=== PATIENT | male | born 1965 | race African-American/Black ===

== ENCOUNTER 2017-02-17 16:40 | Emergency (ER) | payer MEDICAID ==
[~2017-02-17] VITALS: Ht 185.4 cm; Wt 105.0 kg
[~2017-02-17 16:40] MED LIST: ATOR10TA PO; GABA800T97 PO; METO-296 PO; TAMS0.4C31 PO; ZOLP10TA2 PO
[2017-02-17] MEDS ORDERED: ASPIRIN 81MG TABLET PO ONE (17:45)
[2017-02-17] MEDS: NITROGLYCERIN 0.4MG TABLET SL SL PRN ×2 (18:15→18:20)
[2017-02-17 18:36] LABS: BASOPHILS % 1.1 % (0.0-2.0); EOSINOPHILS % 8.7 % (0.0-5.0); HEMATOCRIT. 38.2 % (42.0-52.0); HEMOGLOBIN. 13.1 g/dL (14.0-18.0); LYMPHOCYTES % 40.9 % (20.0-50.0); MEAN CORPUSCULAR HEMOGLOBIN 32.7 pg (28.0-32.0); MEAN CORPUSCULAR VOLUME 95.6 fL (80.0-94.0); MEAN PLATELET VOLUME 10.9 fl (7.4-10.4); NEUTROPHILS % 43.3 % (40.0-76.0); PLATELET 116 x1000/uL (130-400); RED CELL DISTRIBUTION WIDTH 14.1 % (11.6-14.6)
[2017-02-17 18:42] LABS: INR 1.4; PROTHROMBIN TIME 14.8 sec
[2017-02-17 18:52] LABS: CARBON DIOXIDE 27 mEq/L (21-32); CHLORIDE 107 mEq/L (98-107); TROPONIN I < 0.02 ng/mL (0.00-0.04)
[2017-02-17 22:45] VITALS: BP 138/96
== END 2017-02-17 22:47 | disposition home or self-care (01) ==
LOC: ER 19:13
DX: R07.9 Chest pain, unspecified (principal); I48.91 Unspecified atrial fibrillation; Z88.0 Allergy status to penicillin; Z79.899 Other long term (current) drug therapy; I10 Essential (primary) hypertension; J45.909 Unspecified asthma, uncomplicated
CPT/HCPCS: 36415; 71010; 80053; 83880; 84484; 85025; 85610; 93005; 99285; Z7610

== ENCOUNTER 2017-06-17 19:52 | Inpatient (IN) | payer MEDICAID ==
[~2017-06-17] VITALS: Ht 185.4 cm; Wt 93.0 kg
[~2017-06-17 19:52] MED LIST changes: -METO-296 PO; +METO-396 PO
[2017-06-17] MEDS ORDERED: ASPIRIN 81MG TABLET PO STA (20:58)
[2017-06-17] MEDS: NITROGLYCERIN 0.4MG TABLET SL SL PRN ×3 (21:12→22:12)
[2017-06-17 21:51] LABS: HEMATOCRIT. 39.1 % (42.0-52.0); MEAN CORPUSCULAR HEMOGLOBIN 31.5 pg (28.0-32.0); MEAN CORPUSCULAR VOLUME 94.8 fL (80.0-94.0); PLATELET 94 x1000/uL (130-400); RED BLOOD CELL COUNT 4.12 mill/uL (4.7-6.1); RED CELL DISTRIBUTION WIDTH 13.9 % (11.6-14.6)
[2017-06-17 21:56] LABS: CHLORIDE 108 mEq/L (98-107)
[2017-06-17 22:00] LABS: CARBON DIOXIDE 31 mEq/L (21-32); INR 1.5; PARTIAL THROMBOPLASTIN TIME 33.5 sec (23.4-31.0); PROTHROMBIN TIME 15.4 sec (9.4-11.6)
[2017-06-17 22:04] LABS: TROPONIN I < 0.02 ng/mL (0.00-0.04)
[2017-06-17 22:17] LABS: PLATELET ESTIMATE DECREASED
[2017-06-17] MEDS ORDERED: MORPHINE SULFATE 4 MG/ML CPJ (NOT FOR IM USE) IV STA (22:24)
[2017-06-17] MEDS ORDERED: ONDANSETRON HCL 4MG/2ML VIAL IV STA (22:24)
[2017-06-18 01:10] VITALS: BP 131/96
[2017-06-18] MEDS ORDERED: RIVA20TA PO (01:43)
[2017-06-18] MEDS ORDERED: ALBU18HF2 IH (01:46)
[2017-06-18 04:00] VITALS: BP 128/98
[2017-06-18] MEDS: HYDROCODONE/ACETAMINOPHEN 5/325MG TABLET PO PRN ×2 (06:48→14:56)
[2017-06-18 07:18] VITALS: BP 135/105
[2017-06-18] MEDS: IPRATROPIUM/ALBUTEROL 0.5-3(2.5)MG/3ML NEB HHN SCH ×4 (08:07→20:30)
[2017-06-18] MEDS ORDERED: RIVAROXABAN 20 MG TABLET PO SCH ×2 (09:00)
[2017-06-18] MEDS ORDERED: METOPROLOL TARTRATE 25MG TABLET PO SCH (09:00)
[2017-06-18] MEDS ORDERED: MEDICATION NOT ON FORMULARY EA (Metoprolol Succinate 25 MG) PO SCH (09:00)
[2017-06-18] MEDS ORDERED: MEDICATION NOT ON FORMULARY EA (Gabapentin 800 MG) PO SCH (09:00)
[2017-06-18 09:06] LABS: BASOPHILS % 0.4 % (0.0-2.0); EOSINOPHILS % 4.4 % (0.0-5.0); HEMATOCRIT. 38.7 % (42.0-52.0); HEMOGLOBIN. 12.9 g/dL (14.0-18.0); LYMPHOCYTES % 35.2 % (20.0-50.0); MEAN CORPUSCULAR HEMOGLOBIN 31.6 pg (28.0-32.0); MEAN CORPUSCULAR VOLUME 94.6 fL (80.0-94.0); MEAN PLATELET VOLUME 13.1 fl (7.4-10.4); MONOCYTES % 6.4 % (2.0-8.0); NEUTROPHILS % 53.6 % (40.0-76.0); PLATELET 91 x1000/uL (130-400); RED BLOOD CELL COUNT 4.09 mill/uL (4.7-6.1)
[2017-06-18] MEDS: GABAPENTIN 400MG CAPSULE PO SCH ×4 (09:29→21:49)
[2017-06-18 09:34] LABS: CARBON DIOXIDE 32 mEq/L (21-32); CHLORIDE 105 mEq/L (98-107); CREATINE KINASE 318 IU/L (39-308); CREATINE KINASE MB FRACTION 2.8 ng/mL (0.5-3.6); TROPONIN I < 0.02 ng/mL (0.00-0.04)
[2017-06-18] MEDS ORDERED: DILTIAZEM HCL 5MG/ML 5ML VIAL IV PRN (11:45)
[2017-06-18 12:00] VITALS: BP 140/115
[2017-06-18] MEDS: ISOSORB DINIT/HYDRALAZINE HCL 20/37.5MG TABLET PO SCH ×2 (14:56→21:52)
[2017-06-18 15:59] VITALS: BP 112/80
[2017-06-18 16:13] LABS: CREATINE KINASE 286 IU/L (39-308); CREATINE KINASE MB FRACTION 2.4 ng/mL (0.5-3.6); TROPONIN I < 0.02 ng/mL (0.00-0.04)
[2017-06-18 20:00] VITALS: BP_SYST 107; BP_SYST 89; BP_DIAS 63; BP_DIAS 72
[2017-06-18] MEDS ORDERED: MEDICATION NOT ON FORMULARY EA (Zolpidem Tartrate (Ambien) 10 MG) PO SCH (21:00)
[2017-06-18] MEDS: ZOLPIDEM TARTRATE 5MG TABLET PO SCH (21:00)
[2017-06-18] MEDS ORDERED: TAMSULOSIN HCL 0.4MG SR CAPSULE PO SCH (21:00)
[2017-06-18] MEDS: ATORVASTATIN CALCIUM 10MG TABLET PO SCH (21:50)
[2017-06-18] MEDS: FUROSEMIDE 20MG TABLET PO SCH (21:50)
[2017-06-18] MEDS: METOPROLOL TARTRATE 50MG TABLET PO SCH (21:51)
[2017-06-18 23:58] LABS: CREATINE KINASE 241 IU/L (39-308); CREATINE KINASE MB FRACTION 2.6 ng/mL (0.5-3.6); TROPONIN I < 0.02 ng/mL (0.00-0.04)
[2017-06-19] VITALS: BP 98/68
[2017-06-19] MEDS: IPRATROPIUM/ALBUTEROL 0.5-3(2.5)MG/3ML NEB HHN SCH ×5 (01:16→16:54)
[2017-06-19 04:00] VITALS: BP 109/70
[2017-06-19] MEDS: ISOSORB DINIT/HYDRALAZINE HCL 20/37.5MG TABLET PO SCH ×3 (05:34→22:23)
[2017-06-19 06:12] LABS: CARBON DIOXIDE 31 mEq/L (21-32); CHLORIDE 104 mEq/L (98-107)
[2017-06-19 06:20] LABS: BASOPHILS % 0.6 % (0.0-2.0); EOSINOPHILS % 4.7 % (0.0-5.0); HEMATOCRIT. 36.7 % (42.0-52.0); HEMOGLOBIN. 12.2 g/dL (14.0-18.0); LYMPHOCYTES % 41.2 % (20.0-50.0); MEAN CORPUSCULAR HEMOGLOBIN 31.6 pg (28.0-32.0); MEAN PLATELET VOLUME 12.2 fl (7.4-10.4); MONOCYTES % 7.3 % (2.0-8.0); NEUTROPHILS % 46.2 % (40.0-76.0); PLATELET 90 x1000/uL (130-400); RED BLOOD CELL COUNT 3.86 mill/uL (4.7-6.1); RED CELL DISTRIBUTION WIDTH 13.6 % (11.6-14.6)
[2017-06-19 07:25] VITALS: BP 132/95
[2017-06-19] MEDS ORDERED: TAMSULOSIN HCL 0.4MG SR CAPSULE PO SCH ×2 (08:15→21:00)
[2017-06-19] MEDS: GABAPENTIN 400MG CAPSULE PO SCH ×4 (08:53→20:38)
[2017-06-19] MEDS: FINASTERIDE 5MG TABLET PO SCH (08:53)
[2017-06-19] MEDS: FUROSEMIDE 20MG TABLET PO SCH ×2 (08:53→20:38)
[2017-06-19] MEDS: METOPROLOL TARTRATE 50MG TABLET PO SCH ×2 (08:53→20:38)
[2017-06-19 11:35] VITALS: BP 122/92
[2017-06-19 12:06] LABS: CLARITY URINE CLEAR (CLEAR); COLOR URINE YELLOW (YELLOW); GLUCOSE URINE NEGATIVE (NEGATIVE); KETONES URINE NEGATIVE (NEGATIVE); LEUKOCYTE ESTERASE URINE NEGATIVE (NEGATIVE); NITRITE URINE NEGATIVE (NEGATIVE); OCCULT BLOOD URINE TRACE (NEGATIVE); PH URINE 5.5 (4.5-8.0); PROTEIN URINE NEGATIVE (NEGATIVE); SPECIFIC GRAVITY URINE 1.011 (1.005-1.030); UROBILINOGEN URINE 0.2 E.U./dL (0.2-1.0)
[2017-06-19] MEDS: HYDROCODONE/ACETAMINOPHEN 5/325MG TABLET PO PRN (14:31)
[2017-06-19 15:40] VITALS: BP 118/83
[2017-06-19] MEDS ORDERED: RIVAROXABAN 20 MG TABLET PO SCH (17:00)
[2017-06-19 20:00] VITALS: BP 124/100
[2017-06-19] MEDS: ATORVASTATIN CALCIUM 10MG TABLET PO SCH (20:35)
[2017-06-19] MEDS: ZOLPIDEM TARTRATE 5MG TABLET PO SCH (22:23)
[2017-06-20] VITALS: BP 120/75
[2017-06-20 04:00] VITALS: BP 137/100
[2017-06-20] MEDS: ISOSORB DINIT/HYDRALAZINE HCL 20/37.5MG TABLET PO SCH (05:22)
[2017-06-20] MEDS: HYDROCODONE/ACETAMINOPHEN 5/325MG TABLET PO PRN (06:24)
[2017-06-20 08:09] VITALS: BP 126/90
[2017-06-20] MEDS: FUROSEMIDE 20MG TABLET PO SCH (08:58)
[2017-06-20] MEDS: GABAPENTIN 400MG CAPSULE PO SCH (08:59)
[2017-06-20] MEDS: METOPROLOL TARTRATE 50MG TABLET PO SCH (08:59)
[2017-06-20] MEDS: FINASTERIDE 5MG TABLET PO SCH (08:59)
[2017-06-20 09:51] VITALS: BP 126/90
== END 2017-06-20 11:30 | disposition home or self-care (01) | DRG 203 ==
LOC: ER 20:17 → 6WST 23:42 → EDBEDREQ 23:45 → ENRESERV 23:57
PROVIDERS: ADMIT Internal Medicine; ATTEND Internal Medicine
DX: M94.0 Chondrocostal junction syndrome [Tietze] (principal); I42.0 Dilated cardiomyopathy; I10 Essential (primary) hypertension; E78.5 Hyperlipidemia, unspecified; I48.2 Chronic atrial fibrillation; N40.0 Benign prostatic hyperplasia without lower urinary tract symptoms; Z79.01 Long term (current) use of anticoagulants; Z89.511 Acquired absence of right leg below knee; Z88.0 Allergy status to penicillin; Z79.899 Other long term (current) drug therapy; Z82.49 Family history of ischemic heart disease and other diseases of the circulatory system
CPT/HCPCS: 36415; 71010; 80048; 81001; 82550; 82553; 83735; 83880; 84484; 85025; 85610; 85730; 93005; 93306; 93970; 94640; 96374; 96375; 99285; J2270; J2405; J7620

== ENCOUNTER 2021-02-13 13:00 | Inpatient (IN) | payer MEDICAID ==
[~2021-02-13] VITALS: Ht 185.4 cm; Wt 104.3 kg
[~2021-02-13 13:00] MED LIST changes: +ALBU18HF2 IH; +APIX5TAB PO; +CARV6.2548 PO; +DOCU-150 PO; +FINA5TAB11 PO; +FURO40TA5 PO; +LISI10TA26 PO; +NON-FORMULARY INH
[2021-02-13] MEDS ORDERED: MORPHINE SULFATE 2 MG/ML CPJ (NOT FOR IM USE) IV ONE (14:15)
[2021-02-13 14:29] LABS: BASOPHILS % 1.3 % (0.0-2.0); EOSINOPHILS % 6.4 % (0.0-5.0); HEMATOCRIT. 44.2 % (42.0-52.0); HEMOGLOBIN. 14.6 g/dL (14.0-18.0); LYMPHOCYTES % 31.6 % (20.0-50.0); MEAN CORPUSCULAR HEMOGLOBIN 32.9 pg (28.0-32.0); MEAN CORPUSCULAR VOLUME 99.1 fL (80.0-94.0); MONOCYTES % 7.6 % (2.0-8.0); NEUTROPHILS % 53.1 % (40.0-76.0); PLATELET 104 x1000/uL (130-400); RED BLOOD CELL COUNT 4.46 mill/uL (4.7-6.1); RED CELL DISTRIBUTION WIDTH 15.1 % (11.6-14.6)
[2021-02-13 14:30] LABS: CHLORIDE 107 mEq/L (98-107)
[2021-02-13 14:31] LABS: *AMPHETAMINES SCREEN URINE NEGATIVE (NEGATIVE); *BARBITURATES SCREEN URINE NEGATIVE (NEGATIVE)
[2021-02-13 14:32] LABS: *BENZODIAZEPINES SCREEN URINE NEGATIVE (NEGATIVE); *COCAINE SCREEN URINE NEGATIVE (NEGATIVE); CANNABINOID URINE SCREEN NEGATIVE (NEGATIVE); METHADONE URINE SCREEN NEGATIVE (NEGATIVE); OPIATES URINE SCREEN NEGATIVE (NEGATIVE); PHENCYCLIDINE URINE SCREEN NEGATIVE (NEGATIVE)
[2021-02-13 14:34] LABS: ETHANOL BLOOD < 10 mg/dL
[2021-02-13] MEDS ORDERED: IOHEXOL-350 100 ML BOTTLE ONE (16:50)
[2021-02-13] MEDS ORDERED: ASPIRIN 325MG EC TABLET PO NR (18:30)
[2021-02-13] MEDS ORDERED: DIPHENHYDRAMINE 50MG/ML VIAL IV PRN (19:15)
[2021-02-13] MEDS ORDERED: ONDANSETRON HCL 4MG/2ML INJ IV PRN (19:15)
[2021-02-13] MEDS ORDERED: CLONIDINE 0.1MG TABLET PO PRN (19:15)
[2021-02-13] MEDS ORDERED: MAGNESIUM/ALUMINUM HYDROXIDE/SIMETHICONE 30ML UDC PO PRN (19:15)
[2021-02-13] MEDS ORDERED: DOCUSATE SODIUM 100MG CAPSULE PO PRN (19:15)
[2021-02-13] MEDS ORDERED: ACETAMINOPHEN 325MG TABLET PO PRN (19:15)
[2021-02-13] MEDS ORDERED: NA PHOS,M-B/NA PHOS,DI-BA ENEMA 118ML PR PRN (19:15)
[2021-02-13] MEDS ORDERED: HYDROCODONE/ACETAMINOPHEN 5/325MG TABLET PO PRN (19:15)
[2021-02-13] MEDS ORDERED: GUAIFENESIN 200MG/10ML SUGAR FREE UDC PO PRN (19:15)
[2021-02-13 19:44] LABS: CHLORIDE 105 mEq/L (98-107)
[2021-02-13] MEDS: MORPHINE SULFATE 2 MG/ML CPJ (NOT FOR IM USE) IV PRN (20:21)
[2021-02-13] MEDS ORDERED: ENOXAPARIN 40MG/0.4ML SYR SUBCUT SCH (21:00)
[2021-02-13 22:45] VITALS: BP 137/95
[2021-02-14] MEDS: LORAZEPAM 2MG/ML CPJ IV PRN ×2 (01:52→22:34)
[2021-02-14 04:30] VITALS: BP 115/83
[2021-02-14 06:57] LABS: CHLORIDE 106 mEq/L (98-107)
[2021-02-14 07:06] LABS: HDL CHOLESTEROL 34 mg/dL (40-59)
[2021-02-14 07:08] LABS: LDL CHOLESTEROL 120 mg/dL (5-100)
[2021-02-14 07:09] LABS: T4 FREE 0.86 ng/dL (0.76-1.46)
[2021-02-14 07:15] LABS: BASOPHILS % 0.9 % (0.0-2.0); EOSINOPHILS % 6.7 % (0.0-5.0); HEMATOCRIT. 42.9 % (42.0-52.0); HEMOGLOBIN. 13.9 g/dL (14.0-18.0); LYMPHOCYTES % 39.5 % (20.0-50.0); MEAN CORPUSCULAR HEMOGLOBIN 32.5 pg (28.0-32.0); MEAN PLATELET VOLUME 11.3 fl (7.4-10.4); MONOCYTES % 6.9 % (2.0-8.0); PLATELET 98 x1000/uL (130-400); RED BLOOD CELL COUNT 4.29 mill/uL (4.7-6.1); RED CELL DISTRIBUTION WIDTH 14.8 % (11.6-14.6)
[2021-02-14 08:18] VITALS: BP 119/83
[2021-02-14] MEDS: ASPIRIN 81MG EC TABLET PO SCH (08:49)
[2021-02-14] MEDS ORDERED: REGADENOSON 0.4 MG/5 ML IV NR (11:30)
[2021-02-14 11:36] VITALS: BP 117/76
[2021-02-14] MEDS: IPRATROPIUM/ALBUTEROL 0.5-3(2.5)MG/3ML NEB NEB PRN (11:45)
[2021-02-14] MEDS: ENOXAPARIN 120MG/0.8ML SYR SUBCUT SCH ×3 (13:16→22:29)
[2021-02-14] MEDS: FUROSEMIDE 40MG/4ML VIAL IVP SCH (13:16)
[2021-02-14] MEDS: DILTIAZEM HCL 30MG TABLET PO SCH ×2 (13:18→17:43)
[2021-02-14] MEDS: MORPHINE SULFATE 2 MG/ML CPJ (NOT FOR IM USE) IV PRN (14:01)
[2021-02-14 16:40] VITALS: BP 119/83
[2021-02-14 20:09] VITALS: BP 115/80
[2021-02-14] MEDS: CARVEDILOL 3.125 MG TABLET PO SCH (21:11)
[2021-02-14] MEDS: ENTRESTO PO SCH (21:11)
[2021-02-15] VITALS (7 sets, daily range): BP systolic 99–121; BP diastolic 67–93
[2021-02-15] MEDS: DILTIAZEM HCL 30MG TABLET PO SCH ×4 (00:41→17:51)
[2021-02-15] MEDS: MORPHINE SULFATE 2 MG/ML CPJ (NOT FOR IM USE) IV PRN ×3 (00:46→23:22)
[2021-02-15 06:45] LABS: BASOPHILS % 1.1 % (0.0-2.0); EOSINOPHILS % 5.6 % (0.0-5.0); HEMATOCRIT. 41.4 % (42.0-52.0); HEMOGLOBIN. 13.8 g/dL (14.0-18.0); LYMPHOCYTES % 40.3 % (20.0-50.0); MEAN CORPUSCULAR HEMOGLOBIN 32.8 pg (28.0-32.0); MEAN CORPUSCULAR VOLUME 98.2 fL (80.0-94.0); MEAN PLATELET VOLUME 12.1 fl (7.4-10.4); MONOCYTES % 6.2 % (2.0-8.0); NEUTROPHILS % 46.8 % (40.0-76.0); PLATELET 105 x1000/uL (130-400); RED BLOOD CELL COUNT 4.22 mill/uL (4.7-6.1); RED CELL DISTRIBUTION WIDTH 14.7 % (11.6-14.6)
[2021-02-15 07:12] LABS: INR 1.1; PROTHROMBIN TIME 11.9 sec (9.6-11.0)
[2021-02-15] MEDS: FUROSEMIDE 40MG/4ML VIAL IVP SCH (08:36)
[2021-02-15] MEDS: ENTRESTO PO SCH ×2 (08:37→21:01)
[2021-02-15] MEDS: ASPIRIN 81MG EC TABLET PO SCH (08:37)
[2021-02-15] MEDS: CARVEDILOL 3.125 MG TABLET PO SCH ×2 (08:37→20:48)
[2021-02-15] MEDS: ENOXAPARIN 120MG/0.8ML SYR SUBCUT SCH ×2 (08:37→21:01)
[2021-02-15 08:54] LABS: CHLORIDE 104 mEq/L (98-107)
[2021-02-15] MEDS ORDERED: POTASSIUM CHLORIDE 20MEQ TABLET SR PO NR (10:15)
[2021-02-15] MEDS: IPRATROPIUM/ALBUTEROL 0.5-3(2.5)MG/3ML NEB NEB PRN (17:15)
[2021-02-15] MEDS: ZOLPIDEM TARTRATE 5MG TABLET PO PRN (21:06)
[2021-02-16] VITALS (8 sets, daily range): BP systolic 104–137; BP diastolic 67–99
[2021-02-16] MEDS: MORPHINE SULFATE 2 MG/ML CPJ (NOT FOR IM USE) IV PRN ×2 (04:26→22:04)
[2021-02-16] MEDS: DILTIAZEM HCL 30MG TABLET PO SCH ×5 (05:56→23:59)
[2021-02-16 06:12] LABS: CHLORIDE 107 mEq/L (98-107)
[2021-02-16 06:15] LABS: BASOPHILS % 1.1 % (0.0-2.0); EOSINOPHILS % 4.7 % (0.0-5.0); HEMOGLOBIN. 13.8 g/dL (14.0-18.0); LYMPHOCYTES % 40.1 % (20.0-50.0); MEAN CORPUSCULAR HEMOGLOBIN 33.1 pg (28.0-32.0); MEAN CORPUSCULAR VOLUME 98.2 fL (80.0-94.0); MEAN PLATELET VOLUME 11.4 fl (7.4-10.4); NEUTROPHILS % 48.1 % (40.0-76.0); PLATELET 102 x1000/uL (130-400); RED BLOOD CELL COUNT 4.18 mill/uL (4.7-6.1); RED CELL DISTRIBUTION WIDTH 14.8 % (11.6-14.6)
[2021-02-16] MEDS: CARVEDILOL 3.125 MG TABLET PO SCH ×2 (09:00→22:02)
[2021-02-16] MEDS: ENTRESTO PO SCH ×2 (10:07→22:02)
[2021-02-16] MEDS: ASPIRIN 81MG EC TABLET PO SCH (10:07)
[2021-02-16] MEDS: ENOXAPARIN 120MG/0.8ML SYR SUBCUT SCH ×2 (10:07→22:03)
[2021-02-16] MEDS: FUROSEMIDE 40MG/4ML VIAL IVP SCH (10:21)
[2021-02-16] MEDS: IPRATROPIUM/ALBUTEROL 0.5-3(2.5)MG/3ML NEB NEB PRN (11:57)
[2021-02-16] MEDS ORDERED: POTASSIUM CHLORIDE 20MEQ TABLET SR PO NR (13:30)
[2021-02-16] MEDS: ZOLPIDEM TARTRATE 5MG TABLET PO PRN (23:59)
[2021-02-17] VITALS: BP 118/90
[2021-02-17 04:00] VITALS: BP 123/79
[2021-02-17 05:59] LABS: BASOPHILS % 1.2 % (0.0-2.0); EOSINOPHILS % 6.1 % (0.0-5.0); HEMATOCRIT. 42.5 % (42.0-52.0); HEMOGLOBIN. 14.5 g/dL (14.0-18.0); LYMPHOCYTES % 38.7 % (20.0-50.0); MEAN CORPUSCULAR HEMOGLOBIN 33.4 pg (28.0-32.0); MEAN CORPUSCULAR VOLUME 97.9 fL (80.0-94.0); MEAN PLATELET VOLUME 11.8 fl (7.4-10.4); PLATELET 116 x1000/uL (130-400); RED BLOOD CELL COUNT 4.34 mill/uL (4.7-6.1); RED CELL DISTRIBUTION WIDTH 14.6 % (11.6-14.6)
[2021-02-17 06:02] LABS: CHLORIDE 108 mEq/L (98-107)
[2021-02-17] MEDS: DILTIAZEM HCL 30MG TABLET PO SCH ×3 (06:04→17:36)
[2021-02-17 08:09] VITALS: BP 119/75
[2021-02-17] MEDS: IPRATROPIUM/ALBUTEROL 0.5-3(2.5)MG/3ML NEB NEB PRN (09:22)
[2021-02-17] MEDS: ASPIRIN 81MG EC TABLET PO SCH (09:28)
[2021-02-17] MEDS: FUROSEMIDE 40MG/4ML VIAL IVP SCH (09:29)
[2021-02-17] MEDS: CARVEDILOL 3.125 MG TABLET PO SCH ×2 (09:29→21:39)
[2021-02-17] MEDS: ENOXAPARIN 120MG/0.8ML SYR SUBCUT SCH (09:30)
[2021-02-17] MEDS: MORPHINE SULFATE 2 MG/ML CPJ (NOT FOR IM USE) IV PRN ×2 (10:26→21:44)
[2021-02-17] MEDS ORDERED: NON FORMULARY PATIENT HOME MED XX SCH (11:00)
[2021-02-17 12:00] VITALS: BP 111/80
[2021-02-17] MEDS ORDERED: POTASSIUM CHLORIDE 20MEQ TABLET SR PO NR (13:00)
[2021-02-17 16:00] VITALS: BP 111/73
[2021-02-17] MEDS: SACUBITRIL/VALSARTAN 49MG/51MG TABLET PO SCH (16:59)
[2021-02-17 20:00] VITALS: BP_SYST 102; BP_SYST 108; BP_SYST 117; BP_SYST 118; BP_DIAS 67; BP_DIAS 77; BP_DIAS 82; BP_DIAS 89
[2021-02-17] MEDS: ENOXAPARIN 100MG/ML SYR SUBCUT SCH (21:45)
[2021-02-17] MEDS: ZOLPIDEM TARTRATE 5MG TABLET PO PRN (23:24)
[2021-02-18] VITALS: BP 113/74
[2021-02-18 04:00] VITALS: BP 114/72
[2021-02-18] MEDS: DILTIAZEM HCL 30MG TABLET PO SCH ×3 (06:00→14:26)
[2021-02-18] MEDS: MORPHINE SULFATE 2 MG/ML CPJ (NOT FOR IM USE) IV PRN (06:59)
[2021-02-18 07:11] LABS: BASOPHILS % 1.2 % (0.0-2.0); EOSINOPHILS % 6.3 % (0.0-5.0); HEMOGLOBIN. 14.3 g/dL (14.0-18.0); LYMPHOCYTES % 39.4 % (20.0-50.0); MEAN CORPUSCULAR HEMOGLOBIN 33.4 pg (28.0-32.0); MEAN CORPUSCULAR VOLUME 100.5 fL (80.0-94.0); MONOCYTES % 7.7 % (2.0-8.0); NEUTROPHILS % 45.4 % (40.0-76.0); PLATELET 99 x1000/uL (130-400); RED BLOOD CELL COUNT 4.28 mill/uL (4.7-6.1); RED CELL DISTRIBUTION WIDTH 14.9 % (11.6-14.6)
[2021-02-18 07:31] LABS: CHLORIDE 110 mEq/L (98-107)
[2021-02-18 08:00] VITALS: BP_SYST 122; BP_SYST 129; BP_SYST 132; BP_DIAS 83; BP_DIAS 87
[2021-02-18] MEDS: ASPIRIN 81MG EC TABLET PO SCH (08:49)
[2021-02-18] MEDS: CARVEDILOL 3.125 MG TABLET PO SCH (08:50)
[2021-02-18] MEDS ORDERED: REGADENOSON 0.4 MG/5 ML IV ONE (09:00)
[2021-02-18] MEDS: ENOXAPARIN 100MG/ML SYR SUBCUT SCH (09:00)
[2021-02-18 12:00] VITALS: BP 137/59
[2021-02-18] MEDS: SACUBITRIL/VALSARTAN 49MG/51MG TABLET PO SCH (14:24)
[2021-02-18] MEDS: FUROSEMIDE 40MG/4ML VIAL IVP SCH (14:24)
[2021-02-18 14:48] VITALS: BP 137/59
== END 2021-02-18 15:38 | disposition home or self-care (01) | DRG 203 ==
LOC: ER 15:25 → 6WST 18:27 → EDBEDREQTM 18:30 → EDBEDREQ 18:30 → ENRESERV 22:15
PROVIDERS: ADMIT Internal Medicine; ATTEND Internal Medicine
DX: M94.0 Chondrocostal junction syndrome [Tietze] (principal); I11.0 Hypertensive heart disease with heart failure; I50.9 Heart failure, unspecified; I25.10 Atherosclerotic heart disease of native coronary artery without angina pectoris; I48.20 Chronic atrial fibrillation, unspecified; E78.5 Hyperlipidemia, unspecified; E78.00 Pure hypercholesterolemia, unspecified; I25.5 Ischemic cardiomyopathy; F10.10 Alcohol abuse, uncomplicated; Z20.822 Contact with and (suspected) exposure to COVID-19; Y90.9 Presence of alcohol in blood, level not specified; I25.2 Old myocardial infarction; Z79.01 Long term (current) use of anticoagulants; Z86.73 Personal history of transient ischemic attack (TIA), and cerebral infarction without residual deficits; Z88.0 Allergy status to penicillin; Z79.899 Other long term (current) drug therapy; Z89.511 Acquired absence of right leg below knee; Z82.49 Family history of ischemic heart disease and other diseases of the circulatory system; Z83.3 Family history of diabetes mellitus; Z95.810 Presence of automatic (implantable) cardiac defibrillator; Z87.891 Personal history of nicotine dependence
CPT/HCPCS: 36415; 70496; 70498; 71045; 78452; 80048; 80053; 80061; 80305; 80320; 83735; 83880; 84439; 84443; 84484; 85025; 87426; 93005; 93017; 93306; 94640; 99285; A9500; J1650; J1940; J2060; J2270; J2785; Q9967; G0480

== ENCOUNTER 2023-09-12 16:47 | Emergency (ER) | payer MEDICAID, OTHER ==
[~2023-09-12] VITALS: Ht 182.9 cm; Wt 108.0 kg
[~2023-09-12 16:47] MED LIST changes: -DOCU-150 PO; -NON-FORMULARY INH
[2023-09-12 16:52] VITALS: O2SAT 100
[2023-09-12 18:10] LABS: BASOPHILS % 1.2 % (0.0-2.0); DIFFERENTIAL COMMENT 0; HEMATOCRIT. 48.3 % (42.0-52.0); HEMOGLOBIN. 15.9 g/dL (14.0-18.0); MEAN CORPUSCULAR HEMOGLOBIN 31.9 pg (28.0-32.0); MEAN CORPUSCULAR HGB CONC 32.9 g/dL (31.0-37.0); MEAN PLATELET VOLUME 11.3 fl (7.4-10.4); MONOCYTES % 9.7 % (2.0-8.0); NEUTROPHILS % 50.1 % (40.0-76.0); PLATELET 113 x1000/uL (130-400); RED BLOOD CELL COUNT 4.98 mill/uL (4.7-6.1); RED CELL DISTRIBUTION WIDTH 14.7 % (11.6-14.6); WHITE BLOOD COUNT 5.6 x1000/uL (4.5-11.0)
[2023-09-12 18:25] LABS: ALANINE AMINOTRANSFERASE 33 IU/L (10-49); ALBUMIN 4.2 g/dL (3.2-4.8); ASPARTATE AMINOTRANSFERASE 70 IU/L (<34); BILIRUBIN TOTAL 0.5 mg/dL (0.1-1.0); CALCIUM 9.4 mg/dL (8.7-10.4); CARBON DIOXIDE 30 mEq/L (21-32); CHLORIDE 105 mEq/L (98-107); CREATININE 2.4 mg/dL (0.6-1.3); GLUCOSE 102 mg/dL (70-105); POTASSIUM 3.9 mEq/L (3.5-5.1); PROTEIN TOTAL 8.2 g/dL (6.0-8.3); SODIUM 143 mEq/L (136-145); TROPONIN I HIGH SENSITIVITY 24 ng/L (3.0-53); UREA NITROGEN BLOOD 32 mg/dL (9-23)
[2023-09-13] MEDS ORDERED: ASPIRIN 325MG EC TABLET PO ONE (04:30)
[2023-09-13] MEDS ORDERED: MORPHINE SULFATE 4 MG/ML CPJ (NOT FOR IM USE) IV ONE (04:30)
[2023-09-13 05:05] LABS: TROPONIN I HIGH SENSITIVITY 15 ng/L (3.0-53)
[2023-09-13] MEDS ORDERED: POTASSIUM CHLORIDE 20MEQ/PACKET PO NR (05:15)
[2023-09-13] MEDS ORDERED: ASPIRIN 325MG EC TABLET PO NR (05:15)
[2023-09-13] MEDS ORDERED: MORPHINE SULFATE 4 MG/ML CPJ (NOT FOR IM USE) IV NR (05:15)
[2023-09-13 05:52] LABS: PHOSPHORUS 3.5 mg/dL (2.5-4.9)
[2023-09-13 08:45] VITALS: BP 117/93; PULSE 59; RESP 19; TEMP 98.4
== END 2023-09-13 08:53 | disposition short-term general hospital (02) ==
LOC: ER 16:47
DX: R07.89 Other chest pain (principal); I48.91 Unspecified atrial fibrillation; I11.0 Hypertensive heart disease with heart failure; I50.9 Heart failure, unspecified; Z79.899 Other long term (current) drug therapy
CPT/HCPCS: 99285; 71045; 80053; 83880; 85025; 84484 ×2; 36415 ×2; 93005; 96374; 83735; 84100; J2270

== ENCOUNTER 2024-02-17 13:39 | Emergency (ER) | payer OTHER ==
[~2024-02-17] VITALS: Ht 185.4 cm; Wt 105.0 kg
[2024-02-17 13:43] VITALS: O2SAT 97
[2024-02-17] MEDS ORDERED: KETOROLAC 60MG/2ML VIAL IM ONE (14:30)
[2024-02-17] MEDS: ACETAMINOPHEN 325MG TABLET PO ONE (15:07)
[2024-02-17] MEDS: KETOROLAC 30MG/ML VIAL IM NR (15:08)
[2024-02-17] MEDS ORDERED: ACET-2708 MT (16:00)
[2024-02-17] MEDS ORDERED: P50 MT (16:00)
[2024-02-17] MEDS ORDERED: GABA800T97 PO (16:00)
[2024-02-17] MEDS ORDERED: TOPUD MT (16:00)
[2024-02-17 16:55] VITALS: BP 142/88; PULSE 92; RESP 18; TEMP 98.1
== END 2024-02-17 16:56 | disposition home or self-care (01) ==
LOC: ER 13:39
DX: M19.012 Primary osteoarthritis, left shoulder (principal); I11.0 Hypertensive heart disease with heart failure; I50.9 Heart failure, unspecified; Z88.0 Allergy status to penicillin
CPT/HCPCS: 99284; 73502; 73030; 96372; J1885